=== PATIENT | female | born 1980 | race African-American/Black ===

== ENCOUNTER → 2017-06-27 | Outpatient (REF) | payer BC | LOC: M LAB REF 13:37 | PROVIDERS: ATTEND Advanced Practice Midwife | DX: Z12.4 Encounter for screening for malignant neoplasm of cervix (principal) | CPT/HCPCS: 87491; 87591; G0123 ==

== ENCOUNTER → 2017-06-28 | Outpatient (CLI) | payer BC, OTHER ==
--- NOTE | 2017-06-28 16:10 | REP ---
Pelvic ultrasound: The studies performed transabdominal, endovaginal and Doppler ultrasound assessment. The uterus is anteverted and normal size measuring 8.5 x 3.6 x 4.7 cm. The myometrium is homogeneous. The endometrium is not thickened measuring 5.9 mm. There is an IUD centrally placed in the endometrial canal. The ovaries are normal size. The right ovary measures 3.5 x 2.0 x 2.6 cm. The left ovary measures 3.0 x 2.3 x 2.8 cm. There are no dominant ovarian masses or cysts. There are small follicles in each ovary. With Doppler assessment there is vascular flow in both ovaries with the Doppler resistive index in the right ovary measuring 0.56 and the left ovary 0.58. There is no free fluid in the pelvis. Impression: There is an IUD centrally placed within the endometrial canal. Otherwise, essentially negative pelvic ultrasound. Signed by Raymond Garnett MD 06/28/2017 04:02 P
== END ==
LOC: EDUNIT# 15:00 → M SMT 15:11
PROVIDERS: ATTEND Advanced Practice Midwife
DX: R10.2 Pelvic and perineal pain (principal)